=== PATIENT | male | born 1995 | race Caucasian/White ===

== ENCOUNTER 2017-08-21 00:47 | Emergency (ER) | payer BC ==
[2017-08-21 02:31] VITALS: BP 135/84
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
--- NOTE | 2017-08-21 07:48 | RAD ---
HISTORY: Right hand injury COMPARISONS: None VIEWS: 4, Frontal, lateral, and oblique views of the right hand FINDINGS: BONE DENSITY: Normal. BONES: There is a comminuted fracture of the distal fifth metacarpal with mild volar angulation. JOINTS: There is no arthropathy. ALIGNMENT: There is no dislocation. SOFT TISSUES: Unremarkable. OTHER FINDINGS: None. IMPRESSION: MILDLY ANGULATED FRACTURE OF THE DISTAL FIFTH METACARPAL
== END 2017-08-21 02:00 | disposition home or self-care (01) ==
LOC: ED 00:47
DX: S62.306A Unspecified fracture of fifth metacarpal bone, right hand, initial encounter for closed fracture (principal); W22.09XA Striking against other stationary object, initial encounter; Y93.9 Activity, unspecified; Y92.480 Sidewalk as the place of occurrence of the external cause
CPT/HCPCS: 99282